=== PATIENT | male | born 1975 | race Caucasian/White ===

== ENCOUNTER → 2019-12-29 | Outpatient (CLI) | payer OTHER ==
--- NOTE | 2019-12-29 10:30 | XR ---
EXAMINATION TYPE: XR wrist complete LT DATE OF EXAM: 12/29/2019 CLINICAL HISTORY: pain TECHNIQUE: Frontal, lateral and oblique images of the left wrist are obtained. COMPARISON: None. FINDINGS: There is no acute fracture/dislocation evident. The joint spaces appear within normal bach its. The overlying soft tissue appears unremarkable. IMPRESSION: There is no acute fracture or dislocation seen. ICD 10 NO FRACTURE, INITIAL EVALUATION
--- NOTE | 2019-12-29 10:30 | XR ---
EXAMINATION TYPE: XR shoulder complete LT DATE OF EXAM: 12/29/2019 CLINICAL HISTORY: pain COMPARISON: NONE TECHNIQUE: Three views of the left shoulder are obtained. FINDINGS: There is no acute fracture/dislocation evident. The acromioclavicular and glenohumeral haydee int spaces appear within normal limits. The visualized ribs are intact and unremarkable. IMPRESSION: 1. There is no acute fracture or dislocation. ICD 10 NO FRACTURE, INITIAL EVALUATION
--- NOTE | 2019-12-29 10:31 | XR ---
EXAMINATION TYPE: XR elbow complete LT DATE OF EXAM: 12/29/2019 CLINICAL HISTORY: pain TECHNIQUE: Frontal, lateral and oblique images of the left elbow are obtained. COMPARISON: None. FINDINGS: There is no acute fracture/dislocation evident of the elbow. No abnormal fat pad signs ar e seen. Olecranon spurring noted. The overlying soft tissue appears unremarkable. IMPRESSION: There is no acute fracture or dislocation of the elbow. ICD 10 NO FRACTURE, INITIAL EVALUATION
== END | disposition home or self-care (01) ==
LOC: RADXRMAIN 10:06
PROVIDERS: ATTEND Emergency Medicine
DX: S46.012A Strain of muscle(s) and tendon(s) of the rotator cuff of left shoulder, initial encounter (principal); S56.812A Strain of other muscles, fascia and tendons at forearm level, left arm, initial encounter; M25.522 Pain in left elbow; R20.9 Unspecified disturbances of skin sensation

== ENCOUNTER → 2020-03-19 | Outpatient (CLI) | payer OTHER | LOC: RADMRIMAIN 09:24 | PROVIDERS: ATTEND Orthopaedic Surgery | DX: Z53.9 Procedure and treatment not carried out, unspecified reason (principal) ==

== ENCOUNTER → 2020-04-25 | Outpatient (CLI) | payer OTHER ==
[2020-04-25 14:34] LABS: Basophils # (A) 0.1 k/uL (0-0.2); Basophils % (A) 1 %; Eosinophils # (A) 0.4 k/uL (0-0.7); Eosinophils % (A) 3 %; HGB 17.1 gm/dL (13.0-17.5); Lymphocytes # (A) 3.9 k/uL (1.0-4.8); Lymphocytes % (A) 37 %; MCH 29.8 pg (25.0-35.0); MCV 90.4 fL (80.0-100.0); Mean Platelet Volume 7.9; Monocytes # (A) 0.6 k/uL (0-1.0); Monocytes % (A) 6 %; Neutrophils # (A) 5.4 k/uL (1.3-7.7); Neutrophils % (A) 51 %; Platelet Count 267 k/uL (150-450); RBC 5.75 m/uL (4.30-5.90); RDW 12.2 % (11.5-15.5); WBC 10.6 k/uL (3.8-10.6)
== END | disposition home or self-care (01) ==
LOC: LABPAT 12:20
PROVIDERS: ATTEND Orthopaedic Surgery
DX: Z01.818 Encounter for other preprocedural examination (principal)
CPT/HCPCS: 36415; 84132; 85025; 93005

== ENCOUNTER → 2020-04-27 | Day surgery (SDC) | payer OTHER ==
[2020-04-24 15:58] VITALS: BMI 50.1
[~2020-04-27] MED LIST: BUPIVACAINE (PF) 0.5% 30 ML VIAL SQ ONE; DEXAMETHASONE SOD PHOSPHATE 10 MG/ML 1 ML VIAL IV ONE; DEXAMETHASONE SOD PHOSPHATE 4 MG/ML 1 ML VIAL ONE; GLYCOPYRROLATE 0.2 MG/ML 2 ML VIAL ONE; HYDROcodone/APAP 7.5-325MG 1 EACH TAB PO ONE; HYDROmorphone 0.5 MG/0.5 ML SYRINGE IVP PRN; LACTATED RINGERS 1,000 ML IV ONE; LACTATED RINGERS 1,000 ML IV SCH; LIDOCAINE 1% (10MG/ML) FOR IV START INTRADERMA PRN; LIDOCAINE 1% INJ 10MG/ML (20 ML MDV) ONE; MIDAZOLAM 2 MG/2 ML VIAL IV ONE; MIDAZOLAM 2 MG/2 ML VIAL IV PRN; NEOSTIGMINE 1 MG/ML 10 ML VIAL ONE; ONDANSETRON 4 MG/2 ML VIAL IVP ONE; PROPOFOL 10 MG/ML 20 ML VIAL IV ONE; Pre Op ABX Message 1 EACH MISC MISCELLANE ONE; ROCURONIUM BROMIDE 10 MG/ML 5 ML VIAL IV ONE; ROPIVACAINE 5 MG/ML 30 ML VIAL ONE; SODIUM CHLORIDE 0.9% 50 ML with ceFAZolin 2,000 MG IV ONE; SUCCINYLCHOLINE CHLORIDE VIAL 200 MG/10 ML VIAL IV ONE; WATER FOR INJECTION, STERILE 10 ML VIAL IV ONE; ceFAZolin 1,000 MG VIAL ONE; ePHEDrine SULFATE/0.9% NACL/PF 50 MG/5 ML SYRINGE IV ONE; fentaNYL (PF) 50 MCG/ML 2 ML AMP IV ONE; fentaNYL (PF) 50 MCG/ML 2 ML AMP IVP PRN; fentaNYL (PF) 50 MCG/ML 2 ML AMP ONE
--- NOTE | 2020-04-27 15:44 | P.ANPRN ---
Procedure Note - Anesthesia - Nerve Block Performed Left Interscalene Single Time Out Performed: Yes Date of Procedure: 04/27/20 Procedure Start Time: 13:54 Procedure Stop Time: 14:07 Location of Patient: PreOp Indication: Requested by Surgeon Specifically requested for management of pain by DrSaravanan: Frank King Sedation Type: Sedate with meaningful contact maintained Preparation: Sterile Prep Position: Supine Needle Types: Touhy Needle Gauge: 20 Ultrasound used to visualize needle placement: Yes Ultrasound used to observe medication spread: Yes Injectate: 0.5% Ropivacaine (see comment for volume) (20 ml plus Dexamethasone 4 mg) Blood Aspirated: No Pain Paresthesia on Injection Noted: No Resistance on Injection: Normal Image Stored and Saved: Yes Events: Uneventful and Well Tolerated
--- NOTE | 2020-04-27 16:33 | P.OP ---
Date of Procedure: 04/27/20 Procedure(s) Performed: PREOPERATIVE DIAGNOSES: 1. Left shoulder possible labral tear 2. Left shoulder possible rotator cuff tear 3. Left shoulder long head biceps tendinopathy 4. Left shoulder impingement and subacromial bursitis 5. Left shoulder possible referred pain from cervical pathology 6. Left wrist carpal tunnel syndrome POSTOPERATIVE DIAGNOSES: 1. Left oulder superior labral tear, type 1 2. Left shoulder minimal surface rotator cuff tear 3. Left shoulder long head biceps tendinopathy 4. Left shoulder impingement and subacromial bursitis 5. Left shoulder possible referred pain from cervical pathology 6. Left wrist carpal tunnel syndrome PROCEDURES PERFORMED: 1. Left shoulder arthroscopy with subacromial bursectomy and debridement of minimal superior labral tear 2. Left shoulder arthroscopic debridement of partial rotator cuff tear (supraspinatus articular surface) and biceps tenotomy 3. Left open carpal tunnel release 4. Evaluation of left shoulder under anesthesia ANESTHESIA: General plus interscalene block [employer] SOAPING MACHINE OPERATOR: Tanya Persaud PA-C (assistance with exposure, hemostasis, retraction, fixation, closure, dressing, splint) COMPLICATIONS: None ESTIMATED BLOOD LOSS: less than 10 mL for both procedures combined DISPOSITION: To post-anesthesia care unit INDICATIONS: Phuc is a 45-year-old male who is morbidly obese (BMI 52) with a history of left shoulder pain resulting from a work-related injury. He also has signs and symptoms possibly consistent with cervical pathology although a recent EMG has shown no evidence of cervical radiculopathy but positive evidence of a left carpal tunnel syndrome. Initially, he had numbness, tingling, and weakness with severe pain probably consistent with a cervical nerve root impingement and referred pain into the shoulder. Patient wishes to pursue an arthroscopic evaluation at this time. I have explained the procedure of diagnostic arthroscopy with the possible performance of attendant procedures necessary during the operation, such as bursectomy, decompression, and labral repair. I have discussed risks and potential complications as being inclusive of, but not limited to: Bleeding, infection, scarring, discomfort, blood vessel and/or nerve damage, need for further surgery, instability, chondrolysis, persistence or worsening or recurrence of symptoms, loss of motion/stiffness, persistent neurologic dysfunction, and other risks. He is aware of these risks and wishes to proceed with surgery, as well as the increased risk of surgery due to his morbid obesity. The consent form has been signed. PROCEDURE: After appropriate consent was obtained, the patient was taken to the operating room placed in the supine position. Anesthesia was initiated, and after confirmation of adequate anesthesia, the patient was carefully positioned. Both shoulders were examined for stability. Examination was difficult secondary to patient's morbid obesity. However, grossly the patient had no evidence of shoulder instability in the anterior posterior or inferior directions. Care was taken to make sure that all pressure points were adequately padded. Carpal tunnel syndrome was addressed first. Patient's arm was placed on a arm board with a tourniquet placed high on the left axilla. Prepping and draping were completed in the usual aseptic fashion using Hibiclens prep, and the planned area of the incision was infiltrated with lidocaine 0.5% without epinephrine. Tourniquet was then inflated after exsanguination of the limb using an Esmarch. Incision was then created over the palm proximally, in line with the radial border of the fourth ray. Total length of incision was approximately three quarters of an inch. Incision was carried down through skin into subcu tissues and down to palmar fascia. Palmar fascia was split in line with the incision revealing the underlying contents of the carpal tunnel. Under direct visualization, the transverse carpal ligament was released using combination of scissors and 15 blade knife. No evidence of significant tenosyn ovitis was noted within the carpal tunnel. No evidence of aberrant anatomy. After complete release was confirmed, the area was thoroughly irrigated with normal saline, closure was performed with vertical mattress 4-0 nylon sutures and sterile dressing was applied. Tourniquet was deflated and pressure was held over the incision for 3 minutes prior to the next portion of the case. The shoulder was addressed next. Patient was positioned in the lateral decubitus position on the operating table with the left side up. Special care was taken during this step as the patient was morbidly obese and utmost care was used to properly pad all pressure points and pressure neutral neck positioning. Prepping and draping were completed in the usual aseptic fashion using ChloraPrep. Timeout was called, confirming patient identity, side, procedure, and administration of antibiotics. The shoulder was suspended from traction with 15 lbs. of weight in a position of 45 degrees abduction. Landmarks were outlined with a skin marking pen. A spinal needle was inserted into the glenohumeral joint and fluid was administered to distend the joint. Good pressure was noted after 90 cc was administered. A posterior portal was created using an 11 blade and the arthroscopic canula, over a dull trocar, was carefully inserted into the joint. Arthroscopy then commenced. An anterior portal was inserted in the rotator interval area using inside-out technique. Biceps tendon showed tendinopathy near the insertion onto the superior labrum. Infraspinatus, subscapularis, and teres minor attachments were normal. Supraspinatus insertion had a minimal degenerative tearing appearance, with no more than 2 mm of depth of degenerative tendon on this articular side. Hyaline cartilage of the glenoid and humeral head was normal. No loose bodies were noted in the joint. Superior labrum showed minor fraying centrally, consistent with a minor appearing type I tear. This was debrided minimally with a shaver and further smoothed using the [place] radiofrequency. Subscapularis recess and axillary recess were normal. No significant synovitis was seen. Labrum elsewhere was completely intact and normal. There was adequate space within the anterior inferior axillary recess. The minor fraying of the superior labrum was removed and smoothed using a shaver and [place] device on a setting of #2. Consi dering this patient's history of anterior pain in the long head of the biceps, the long head biceps tendon was tenotomized using radiofrequency and allowed to retract into the groove. Attention was then directed to the subacromial space. The camera and instruments were redirected into the subacromial space and bursoscopy was performed. The patients bursa was inflamed and thickened, consistent with acute bursitis. A lateral portal was created using outside-in technique and the inflamed bursal material was removed using a rotary shaver. The bursal surface of the rotator cuff was fully visualized and found to be intact throughout. The undersurface of the acromion was evaluated and found to have no significant frictional changes and therefore no subacromial decompression was performed. The subacromial bursa however was somewhat hypervascular, consistent with a diagnosis of acute bursitis. Subsequently, 4-0 Monocryl suture was used to close the portals. Steri- strips were applied as well as sterile dressing. The shoulder was then placed into a sling and the patient was transferred to recovery room in stable condition. Sponge and needle counts were correct. Patient tolerated the procedure well and taken to recovery room in stable condition. Sponge and needle counts were correct.
[2020-04-27 16:42] VITALS: TEMP 98.8
[2020-04-27 17:26] VITALS: RESP 17
[2020-04-27 17:36] VITALS: BP 131/81; PULSE 77
== END | disposition home or self-care (01) ==
LOC: OR 13:13
PROVIDERS: ATTEND Orthopaedic Surgery
DX: M75.102 Unspecified rotator cuff tear or rupture of left shoulder, not specified as traumatic (principal); G56.02 Carpal tunnel syndrome, left upper limb; S43.432A Superior glenoid labrum lesion of left shoulder, initial encounter; M75.22 Bicipital tendinitis, left shoulder; M75.42 Impingement syndrome of left shoulder; M75.52 Bursitis of left shoulder; I10 Essential (primary) hypertension; E66.01 Morbid (severe) obesity due to excess calories; Z68.43 Body mass index [BMI] 50.0-59.9, adult; Z79.899 Other long term (current) drug therapy; F17.210 Nicotine dependence, cigarettes, uncomplicated
CPT/HCPCS: 64415; 76942; 64721; 29822; 29826; C1894; J2250; J0330; J1100 ×2; J2710; J2405; J0690; J2001; J3010; J2795; J2704